=== PATIENT | female | born 1940 | race Caucasian/White ===

== ENCOUNTER 2021-07-05 16:26 | Inpatient (IN) | payer MEDICARE, BC ==
--- NOTE | 2021-07-05 16:58 | ED ---
General Adult HPI - General Chief complaint: Abdominal Pain Stated complaint: vomiting Time Seen by Provider: 07/05/21 16:33 Source: patient Mode of arrival: ambulatory Limitations: no limitations - History of Present Illness Initial comments: Patient is an 80-year-old female with history of hypertension, presenting to the emergency Department with complaints of on and off abdominal bloating and nausea and vomiting has been going on for a few weeks. She states it seems to be worse over the last few days. Currently she has no complaints. She states after she eats, she states that her stomach feels very bloated and she feels the nausea started soon after and then she needs to vomit. She states after she vomits she feels better. She states that she does not have significant pain with this despite her and bloating. She admits to history of cholecystectomy, hysterectomy, no other abdominal surgeries. She denies any chest pain or shortness of breath, no fevers or chills. She denies history of ulcers or GERD. She states she does drink a lot of water. She mentioned that she did not want to come in for this, her neighbor is making her come in to be evaluated. She does have an appointment with her PCP next week for evaluation. Is not seen a GI specialtist. She has no further complaints at this time. - Related Data Home Medications Medication Instructions Recorded Confirmed Ergocalciferol [Vitamin D2 (1250 1,250 mcg PO MO 07/05/21 07/05/21 Mcg = 29953 Iu)] Lisinopril-Hctz 20-25 mg 1 tab PO DAILY 07/05/21 07/05/21 [Zestoretic 20-25] Metoprolol Tartrate [Lopressor] 25 mg PO HS 07/05/21 07/05/21 amLODIPine [Norvasc] 10 mg PO DAILY 07/05/21 07/05/21 Allergies Allergy/AdvReac Type Severity Reaction Status Date / Time No Known Allergies Allergy Verified 07/05/21 18:00 Review of Systems ROS Statement: Those systems with pertinent positive or pertinent negative responses have been documented in the HPI. ROS Other: All systems not noted in ROS Statement are negative. Past Medical History Past Medical History: Coronary Artery Disease (CAD), Hypertension History of Any Multi-Drug Resistant Organisms: None Reported Past Surgical History: Cholecystectomy, Hysterectomy Past Psychological History: No Psychological Hx Reported Smoking Status: Former smoker Past Alcohol Use History: None Reported Past Drug Use History: None Reported General Exam - General Exam Comments Initial Comments: GENERAL: Patient is well-developed and well-nourished. Patient is nontoxic and in no ac [place] distress. HEAD: Atraumatic, normocephalic. EYES: Pupils equal round and reactive to light, extraocular movements intact, sclera anicteric, conjunctiva are normal. Eyelids were unremarkable. ENT: Moist mucous membranes. NECK: Normal range of motion, supple without lymphadenopathy or JVD. LUNGS: Unlabored respirations. Breath sounds clear to auscultation bilaterally and equal. No wheezes rales or rhonchi. HEART: Regular rate and rhythm without murmurs, rubs or gallops. ABDOMEN: Soft, very mild epigastric pressure on palpation but no pain, normoactive bowel sounds. No guarding, no rebound. No masses appreciated. : Deferred MUSCULOSKELETAL: Normal extremities with adequate strength and normal range of motion, no pitting or edema. No clubbing or cyanosis. NEUROLOGICAL: Patient is alert and oriented x 3. SKIN: Warm, Dry, normal turgor, no rashes or lesions noted. Limitations: no limitations Course Vital Signs 07/05/21 07/05/21 07/05/21 16:27 18:25 19:24 Temperature 98.7 F Pulse Rate 95 74 71 Respiratory 20 16 20 Rate Blood Pressure 145/68 146/69 153/69 O2 Sat by Pulse 96 95 100 Oximetry Medical Decision Making - Medical Decision Making Patient is an 80-year-old female here with on and off abdominal bloating and nausea and vomiting over the past 2 weeks. She currently has no abdominal pain, nausea or vomiting. She states she feels fine today. Her vitals are stable. No significant on exam. History of cholecystectomy, hysterectomy. Patient's white count is 10.8, bilirubin is elevated at 3.5, transaminitis, lipase is normal, urine shows 2+ bilirubin otherwise unremarkable. Ultrasound of the liver shows dilated common bile duct at 1.3 cm, there is no obvious obstruction seen, no focal liver defect. These findings were discussed with the patient, we did recommend admission for further workup, patient is agreeable to this. We did order an MRCP, additional lab work which are pending at this time. We did speak with Dr. Moreno who agrees to see the patient as well as put GI on consult to see in the morning. Patient accepted by Dr. Bravo. Case discussed with Dr. Turner. - Lab Data Result diagrams: 07/05/21 16:53 07/05/21 16:53 Lab Results 07/05/21 07/05/21 07/05/21 Range/Units 16:53 16:53 16:57 WBC 10.8 H (3.8-10.6) k/uL RBC 3.92 (3.80-5.40) m/uL Hgb 12.8 (11.4-16.0) gm/dL Hct 38.2 (34.0-46.0) % MCV 97.4 (80.0-100.0) fL MCH 32.7 (25.0-35.0) pg MCHC 33.6 (31.0-37.0) g/dL RDW 11.8 (11.5-15.5) % Plt Count 259 (150-450) k/uL MPV 8.0 Neutrophils % 82 % Lymphocytes % 12 % Monocytes % 3 % Eosinophils % 1 % Basophils % 0 % Neutrophils # 8.9 H (1.3-7.7) k/uL Lymphocytes # 1.3 (1.0-4.8) k/uL Monocytes # 0.4 (0-1.0) k/uL Eosinophils # 0.2 (0-0.7) k/uL Basophils # 0.0 (0-0.2) k/uL Sodium 139 (137-145) mmol/L Potassium 3.6 (3.5-5.1) mmol/L Chloride 103 (98-107) mmol/L Carbon Dioxide 25 (22-30) mmol/L Anion Gap 11 mmol/L BUN 20 H (7-17) mg/dL Creatinine 0.97 (0.52-1.04) mg/dL Est GFR (CKD-EPI)AfAm 64 (>60 ml/min/1.73 sqM) Est GFR (CKD-EPI)NonAf 55 (>60 ml/min/1.73 sqM) Glucose 138 H (74-99) mg/dL Calcium 9.7 (8.4-10.2) mg/dL Total Bilirubin 3.5 H (0.2-1.3) mg/dL AST 372 H (14-36) U/L ALT 323 H (4-34) U/L Alkaline Phosphatase 163 H (38-126) U/L Total Protein 7.1 (6.3-8.2) g/dL Albumin 4.0 (3.5-5.0) g/dL Lipase 189 (23-300) U/L Urine Color Dark Yellow Urine Appearance Clear (Clear) Urine pH 6.5 (5.0-8.0) Ur Specific [place] 1.016 (1.001-1.035) Urine Protein Trace H (Negative) Urine Glucose (UA) Negative (Negative) Urine Ketones Negative (Negative) Urine Blood Negative (Negative) Urine Nitrite Negative (Negative) Urine Bilirubin 2+ H (Negative) Urine Urobilinogen 8.0 (<2.0) mg/dL Ur Leukocyte Esterase Trace H (Negative) Urine RBC 1 (0-5) /hpf Urine WBC 4 (0-5) /hpf Ur Squamous Epith Cells <1 (0-4) /hpf Urine Mucus Rare H (None) /hpf Disposition Clinical Impression: Abdominal bloating, Nausea and vomiting, Hyperbilirubinemia, Transaminitis, Common bile duct dilatation Disposition: ADMITTED IP TO THIS [facility] Condition: Stable Referrals: Robel Bravo MD [Primary Care Provider] - 1-2 days Decision Date: 07/05/21 Decision Time: 20:12
[2021-07-05 16:59] LABS: Basophils % (A) 0 %; Eosinophils # (A) 0.2 k/uL (0-0.7); Eosinophils % (A) 1 %; HCT 38.2 % (34.0-46.0); HGB 12.8 gm/dL (11.4-16.0); Lymphocytes # (A) 1.3 k/uL (1.0-4.8); Lymphocytes % (A) 12 %; MCH 32.7 pg (25.0-35.0); MCHC 33.6 g/dL (31.0-37.0); MCV 97.4 fL (80.0-100.0); Monocytes # (A) 0.4 k/uL (0-1.0); Monocytes % (A) 3 %; Neutrophils # (A) 8.9 k/uL (1.3-7.7); Neutrophils % (A) 82 %; Platelet Count 259 k/uL (150-450); RBC 3.92 m/uL (3.80-5.40); RDW 11.8 % (11.5-15.5); WBC 10.8 k/uL (3.8-10.6)
--- NOTE | 2021-07-05 17:14 | XR ---
EXAMINATION TYPE: XR KUB DATE OF EXAM: 07/05/2021 COMPARISON: NONE HISTORY: Epigastric pain TECHNIQUE: Single view FINDINGS: There is no sign of intestinal obstruction or pneumoperitoneum. Fecal pattern is normal. Th ere are clips from cholecystectomy. Lung bases are clear. There is no evidence of a mass. IMPRESSION: Nonacute abdomen.
[2021-07-05 17:18] LABS: Appearance,Urine Clear (Clear); Bilirubin,Urine 2+ (Negative); Blood,Urine Negative (Negative); Color,Urine Dark Yellow; Glucose,Urine (UA) Negative (Negative); Ketones,Urine Negative (Negative); Leukocyte Esterase,Urine Trace (Negative); Mucus,Urine Rare /hpf; Nitrite,Urine Negative (Negative); PH, Urine 6.5 (5.0-8.0); Protein,Urine Trace (Negative); RBC,Urine 1 /hpf (0-5); Specific Gravity,Urine 1.016 (1.001-1.035); Squamous Epithelial Cell,Urine <1 /hpf (0-4); WBC,Urine 4 /hpf (0-5)
[2021-07-05 18:02] LABS: Calcium 9.7 mg/dL (8.4-10.2); Potassium 3.6 mmol/L (3.5-5.1); Total Bilirubin 3.5 mg/dL (0.2-1.3); Total Protein 7.1 g/dL (6.3-8.2)
--- NOTE | 2021-07-05 19:15 | US ---
EXAMINATION TYPE: US liver DATE OF EXAM: 07/05/2021 COMPARISON: NONE CLINICAL HISTORY: bloating, transaminitis. bloating after eating, cholecystectomy, elevated labs EXAM MEASUREMENTS: Liver Length: 13.1 cm Gallbladder Wall: Surgically absent CBD: 1.3 cm Right Kidney: 10.0 x 3.9 x 4.9 cm Pancreas: wnl Liver: wnl Gallbladder: Surgically absent Evidence for sonographic Macias's sign: no CBD: dilated with no obvious obstruction seen Right Kidney: wnl IMPRESSION: Gallbladder is absent. There is dilated common bile duct but no dilation seen of the intrahepatic willard e ducts. No free fluid. No focal liver defect.
[2021-07-05] MEDS ORDERED: ONDANSETRON 4 MG/2 ML VIAL IVP PRN (20:05)
[2021-07-05] MEDS ORDERED: NALOXONE 0.4 MG/ML 1 ML VIAL IV PRN (20:05)
[2021-07-05] MEDS ORDERED: PIPERACILLIN-TAZOBACTAM 3.375 GM in SODIUM CHLORIDE 0.9% 100 ML IVPB STA (20:09)
[2021-07-05] MEDS: SODIUM CHLORIDE 0.9% 1,000 ML IV SCH (20:24)
[2021-07-05 20:32] LABS: Bilirubin, Conjugated 1.8 mg/dL (0.0-0.3); Bilirubin, Delta 1.1 mg/dL (0.0-0.2); Total Bilirubin 3.9 mg/dL (0.2-1.3)
[2021-07-05 20:38] LABS: INR 1.1 (<1.2); Prothrombin Time 11.1 sec (9.0-12.0)
[2021-07-05 21:22] LABS: Partial Thromboplastin Time 21.8 sec (22.0-30.0)
[2021-07-05 23:12] LABS: Hepatitis A Antibody IgM Non-Reactive (Non-Reactive); Hepatitis B Core IgM Non-Reactive (Non-Reactive); Hepatitis B Surface Antigen Non-Reactive (Non-Reactive); Hepatitis C IgG Antibody Non-Reactive (Non-Reactive)
[2021-07-06] MEDS: SODIUM CHLORIDE 0.9% 1,000 ML IV SCH ×2 (06:00→17:49)
[2021-07-06] MEDS ORDERED: ERGOCALCIFEROL 1,250 MCG (50,000 IU) CAPSULE PO ONE (13:00)
--- NOTE | 2021-07-06 13:02 | MR ---
EXAMINATION TYPE: MR MRCP DATE OF EXAM: 07/06/2021 COMPARISON: Liver ultrasound 07/05/2021 HISTORY: 80-year-old female Dilated common bile duct, hyperbilirubinemia TECHNIQUE: Multiplanar, multisequence images of the abdomen are obtained. Highly T2 weighted images o f the pancreatic biliary system for MRCP. 3-D reconstructions generated on a dedicated independent wo rkstation FINDINGS: Liver normal size at 15.4 cm. No significant loss of signal on out of phase T1-weighted sequence to s uggest significant fatty infiltration. There is frankly dilated bile duct measuring up to 1.8 cm with mild intrahepatic biliary ductal dilat ation as well. The patient is status post cholecystectomy. There is an ovoid hypointense filling defe ct measuring 2.2 x 1.1 x 1.0 cm located within the lower bile duct, refer to coronal series 301 image 15. No additional abnormal filling defect is seen. Mild prominence to the main pancreatic duct at 4.5 mm may be chronic for the patient. No distal obstr ucting mass is seen. Noncontrast appearance of the patient's dense adrenal glands, right kidney with extrarenal pelvis, pa ncreas, and spleen within normal limits. There is a tiny 6 mm T2 hyperintensity in the upper pole cor kyle of the left kidney suggesting a small cortical cyst. No upper abdominal ascites, lymphadenopathy, or gross bowel abnormality is seen. IMPRESSION: 1. Choledocholithiasis with a large ovoid, 2.2 x 1.1 cm stone in the lower bile duct. 2. Secondary biliary ductal dilatation up to 1.8 cm. 3. Status post cholecystectomy. 4. Mild diffuse dilatation of the main pancreatic duct up to 4.5 mm, probably chronic for the patient . Consider a 6-12 month follow-up MRCP to reassess.
[2021-07-06 13:20] LABS: HCT 36.9 % (34.0-46.0); HGB 12.3 gm/dL (11.4-16.0); MCH 33.5 pg (25.0-35.0); MCHC 33.4 g/dL (31.0-37.0); MCV 100.3 fL (80.0-100.0); Mean Platelet Volume 7.8; Platelet Count 240 k/uL (150-450); RBC 3.68 m/uL (3.80-5.40); RDW 12.3 % (11.5-15.5); WBC 5.4 k/uL (3.8-10.6)
[2021-07-06 13:35] LABS: ALT 242 U/L (4-34); AST 175 U/L (14-36); African American GFR (CKD) 78 (>60 ml/min/1.73 sqM); Albumin 3.9 g/dL (3.5-5.0); Albumin/Globulin Ratio 1.3; Alkaline Phosphatase 161 U/L (38-126); Anion Gap 10 mmol/L; Blood Urea Nitrogen 15 mg/dL (7-17); Calcium 9.3 mg/dL (8.4-10.2); Carbon Dioxide 26 mmol/L (22-30); Chloride 101 mmol/L (98-107); Glucose 97 mg/dL (74-99); Non-African American GFR(CKD) 67 (>60 ml/min/1.73 sqM); Potassium 4.1 mmol/L (3.5-5.1); Sodium 137 mmol/L (137-145); Total Bilirubin 2.1 mg/dL (0.2-1.3); Total Protein 6.9 g/dL (6.3-8.2)
[2021-07-06] MEDS: amLODIPine 10 MG TAB PO SCH (14:26)
[2021-07-06] MEDS: LISINOPRIL-HCTZ 20-25 MG 1 EACH TAB PO SCH (14:26)
--- NOTE | 2021-07-06 15:34 | P.CONS ---
History of Present Illness - Reason for Consult Consult date: 07/06/21 Dilated common bile duct Requesting physician: Robel Bravo - Chief Complaint Abdominal pain, nausea, and vomiting - History of Present Illness This a pleasant 80-year-old white female with a history of hypertension who presented to the emergency department yesterday with complaints of on and off abdominal pain, bloating, nausea and vomiting for the last few days. Patient states actually she recalls now that this has been occurring several different times over the last year however she has managed at home. He had her gallbladder out in 2001, unsure of reason. The pain was getting worse over the last 2 days so she came into the emergency department for further evaluation. She had initial blood work showing elevation in her LFTs. On admission WBC 10.8, hemoglobin 12.8, hematocrit 38, platelet count 259,000, lipase 189, total bilirubin 3.5, alkaline phosphatase 163, AST 372, ALT 323. She underwent an ultrasound of the liver that showed surgically absent gallbladder, dilated common bile duct but no dilation seen of the intrahepatic bile ducts. No free fluid. No focal liver defect. CBD measuring 1.3 cm. Patient stated she was experiencing right upper quadrant and epigastric pain, though seated with some nausea and vomiting. She denies any abdominal pain, nausea or vomiting when she came into the hospital. Today she states abdominal pain is gone, she feels well. Repeat LFTs are trending down with a total bilirubin of 2.1, alkaline phosphatase 161, AST 175, ALT 242. Patient underwent an MRCP showing choledocholithiasis with a large ovoid, 2.2 x 1.1 cm stone in the lower bile duct. Secondary biliary ductal dilation up to 1.8 cm. Status post cholecystectomy, mild diffuse dilation of the main pancreatic duct to 4.4 mm, probably chronic for the patient. Consider a 6-12 month follow-up MRCP to reassess. Review of Systems REVIEW OF SYSTEMS: CARDIOPULMONARY: No chest pain or shortness of breath. Gastrointestinal: Right upper quadrant pain with nausea or vomiting, now resolved. No hematemesis, coffee-ground emesis. No rectal bleeding, or melena. GENITOURINARY: No dysuria or hematuria. MUSCULOSKELETAL: Reports normal range of motion., Joint pain. SKIN: No rashes. No jaundice. ENDOCRINE: No chills, fevers. No excessive weight gain or loss. No polydipsia or polyuria. PSYCHIATRIC: Unremarkable. NEUROLOGY: No change in mental status. Denies dizziness, headache. ENT: Vision unremarkable. CONSTITUTIONAL: No recent weight loss. No fever, chills, night sweats. Past Medical History Past Medical History: Coronary Artery Disease (CAD), Hypertension History of Any Multi-Drug Resistant Organisms: None Reported Past Surgical History: Cholecystectomy, Hysterectomy Past Anesthesia/Blood Transfusion Reactions: No Reported Reaction Past Psychological History: No Psychological Hx Reported Smoking Status: Former smoker Past Alcohol Use History: None Reported Additional Past Alcohol Use History / Comment(s): Social drinker, weekends Past Drug Use History: None Reported - Past Family History Father History Unknown: Yes Additional Family Medical History / Comment(s): Unsure of cause Medications and Allergies Home Medications Medication Instructions Recorded Confirmed Type Ergocalciferol [Vitamin D2 (1250 1,250 mcg PO MO 07/05/21 07/05/21 History Mcg = 05680 Iu)] Lisinopril-Hctz 20-25 mg 1 tab PO DAILY 07/05/21 07/05/21 History [Zestoretic 20-25] Metoprolol Tartrate [Lopressor] 25 mg PO HS 07/05/21 07/05/21 History amLODIPine [Norvasc] 10 mg PO DAILY 07/05/21 07/05/21 History Allergies Allergy/AdvReac Type Severity Reaction Status Date / Time No Known Allergies Allergy Verified 07/05/21 18:00 Physical Exam Vitals: Vital Signs Temp Pulse Pulse Resp BP BP Pulse Ox 07/06/21 05:32 98.2 F 59 L 16 144/56 96 07/05/21 23:00 16 07/05/21 21:50 97.5 F L 58 L 16 155/68 98 07/05/21 19:24 71 20 153/69 100 07/05/21 18:25 74 16 146/69 95 07/05/21 16:27 98.7 F 95 20 145/68 96 Intake and Output 07/05/21 07/06/21 07/06/21 22:59 06:59 14:59 Other: Voiding Method Toilet # Voids 1 Weight 58.151 kg 58.2 kg General appearance: The patient is alert, oriented, appears in no acute distress. HET: Head is normocephalic and atraumatic. Conjunctiva pink. Sclera anicteric. Neck: Supple without lymphadenopathy. Trachea midline. Heart: S1 S2. Regular rate and rhythm. Lungs: Clear to auscultation. Abdomen: Soft, mild right upper quadrant tenderness to palpation, nondistended with bowel sounds. No guarding or rigidity. Skin: No rashes. No jaundice. Extremities: Normal skin color and turgor. No pedal edema. Neurological: No focal deficits. Alert and oriented 3.. Results CBC & Chem 7: 07/06/21 12:45 07/06/21 12:45 Labs: Abnormal Lab Results - Last 24 Hours (Table) 07/05/21 07/05/21 07/05/21 Range/Units 16:53 16:53 16:57 WBC 10.8 H (3.8-10.6) k/uL Neutrophils # 8.9 H (1.3-7.7) k/uL APTT (22.0-30.0) sec BUN 20 H (7-17) mg/dL Glucose 138 H (74-99) mg/dL Total Bilirubin 3.5 H (0.2-1.3) mg/dL Conjugated Bilirubin (0.0-0.3) mg/dL Delta Bilirubin (0.0-0.2) mg/dL AST 372 H (14-36) U/L ALT 323 H (4-34) U/L Alkaline Phosphatase 163 H (38-126) U/L Urine Protein Trace H (Negative) Urine Bilirubin 2+ H (Negative) Ur Leukocyte Esterase Trace H (Negative) Urine Mucus Rare H (None) /hpf 07/05/21 07/05/21 Range/Units 20:02 20:02 WBC (3.8-10.6) k/uL Neutrophils # (1.3-7.7) k/uL APTT 21.8 L (22.0-30.0) sec BUN (7-17) mg/dL Glucose (74-99) mg/dL Total Bilirubin 3.9 H (0.2-1.3) mg/dL Conjugated Bilirubin 1.8 H (0.0-0.3) mg/dL Delta Bilirubin 1.1 H (0.0-0.2) mg/dL AST (14-36) U/L ALT (4-34) U/L Alkaline Phosphatase (38-126) U/L Urine Protein (Negative) Urine Bilirubin (Negative) Ur Leukocyte Esterase (Negative) Urine Mucus (None) /hpf Comments: Ultrasound of the liver that showed surgically absent gallbladder, dilated co mmon bile duct but no dilation seen of the intrahepatic bile ducts. No free fluid. No focal liver defect. CBD measuring 1.3 cm. Patient stated she was experiencing right upper quadrant and epigastric pain, though seated with some nausea and vomiting. MRCP showing choledocholithiasis with a large ovoid, 2.2 x 1.1 cm stone in the lower bile duct. Secondary biliary ductal dilation up to 1.8 cm. Status post cholecystectomy, mild diffuse dilation of the main pancreatic duct to 4.4 mm, probably chronic for the patient. Consider a 6-12 month follow-up MRCP to reassess. Assessment and Plan (1) Choledocholithiasis Narrative/Plan: 80-year-old female who presented to the emergency department with complaints of right upper quadrant and epigastric pain associated with nausea and vomiting over the last few days duration with worse intensity. Patient states she's been having similar symptoms over the past 1 year periodically. She currently denies any abdominal pain, nausea, or vomiting. She underwent an ultrasound of the liver showing dilated CBD at 1.3 cm. She subsequently underwent an MRCP showing evidence of choledochal lithiasis with a large ovoid 2.2 x 1.1 cm stone in the lower bile duct, secondary biliary ductal dilation up to 1.8 cm with mild diffuse dilation of the main pancreatic duct up to 4.5 mm. Patient also exhi bited elevated LFTs. Her acute hepatitis panel was negative. She has previous cholecystectomy in 2001 for unknown reasons, Likely cholelithiasis. We'll plan to proceed with ERCP tomorrow. Current Visit: Yes Status: Acute Code(s): K80.50 - CALCULUS OF BILE DUCT W/O CHOLANGITIS OR CHOLECYST W/O OBST SNOMED Code(s): 869571883 (2) Abdominal pain Current Visit: Yes Status: Acute Code(s): R10.9 - UNSPECIFIED ABDOMINAL PAIN SNOMED Code(s): 25310754 Plan: 1. Full liquid diet, nothing by mouth after midnight 2. Patient is scheduled for ERCP tomorrow, risks and benefits discussed with patient and daughter on the phone. Patient is willing to proceed with procedure. 3. Levaquin 500 mg IVPB one hour prior to procedure 4. Indomethacin 100 mg per rectum one hour prior to procedure 5. Repeat CBC CMP in the morning Thank you for this consultation, we will continue to follow. Dr. Edith Yin I agree with the dictator's note, documented as a scribe by Griselda Graf.
--- NOTE | 2021-07-06 19:31 | P.HPIM ---
History of Present Illness H&P Date: 07/06/21 Krista Aguilar, is an 80-year-old female who presented to [facility] emergency room with a chief complaint of nausea vomiting abdominal bloating and occasional abdominal pain She was evaluated in the emergency room vital examination on presentation revealed a temperature of 98.7 pulse 95 respiration 20 blood pressure 145/68 pulse ox 96% on room air Laboratory data reveals a white blood count of 10.8 hemoglobin 12.8 platelet count 259 INR 1.1 AST 372 a LT 323 alkaline phosphatase 163 total bilirubin 3.9 Testing in the emergency room revealed liver ultrasound done in the emergency room revealed gallbladder is absent, there is dilated common bile duct, otherwise no significant abnormality Patient was admitted to medical floor for further evaluation and treatment, gastroenterology consultation was requested. Past medical history is significant for history of hypertension, history of hyper lipidemia, history of coronary artery disease, past medical history significant for cholecystectomy and hysterectomy On review of systems Patient is alert and oriented x 3 in no distress, she denies any complaints at this time there is no fever or chills no headache or dizziness no chest pain no shortness of breath no palpitation no cough no nausea or vomiting no abdominal pain no diarrhea no blood in the stools no burning with urination no frequency or urgency and no hematuria, there is no weakness or numbness in any of the extremities no change in vision speech or gait. Past Medical History Past Medical History: Coronary Artery Disease (CAD), Hypertension History of Any Multi-Drug Resistant Organisms: None Reported Past Surgical History: Cholecystectomy, Hysterectomy Past Anesthesia/Blood Transfusion Reactions: No Reported Reaction Past Psychological History: No Psychological Hx Reported Smoking Status: Former smoker Past Alcohol Use History: None Reported Additional Past Alcohol Use History / Comment(s): Social drinker, weekends Past Drug Use History: None Reported - Past Family History Father History Unknown: Yes Additional Family Medical History / Comment(s): Unsure of cause Medications and Allergies Home Medications Medication Instructions Recorded Confirmed Type Ergocalciferol [Vitamin D2 (1250 1,250 mcg PO MO 07/05/21 07/05/21 History Mcg = 28997 Iu)] Lisinopril-Hctz 20-25 mg 1 tab PO DAILY 07/05/21 07/05/21 History [Zestoretic 20-25] Metoprolol Tartrate [Lopressor] 25 mg PO HS 07/05/21 07/05/21 History amLODIPine [Norvasc] 10 mg PO DAILY 07/05/21 07/05/21 History Allergies Allergy/AdvReac Type Severity Reaction Status Date / Time No Known Allergies Allergy Verified 07/05/21 18:00 Physical Exam Vitals: Vital Signs Temp Pulse Pulse Pulse Resp BP BP 07/06/21 11:44 97.9 F 73 16 158/65 07/06/21 05:32 98.2 F 59 L 16 07/05/21 23:00 16 07/05/21 21:50 97.5 F L 58 L 16 07/05/21 19:24 71 20 153/69 07/05/21 18:25 74 16 146/69 07/05/21 16:27 98.7 F 95 20 145/68 BP Pulse Ox 07/06/21 11:44 98 07/06/21 05:32 144/56 96 07/05/21 23:00 07/05/21 21:50 155/68 98 07/05/21 19:24 100 07/05/21 18:25 95 07/05/21 16:27 96 Intake and Output 07/05/21 07/06/21 07/06/21 22:59 06:59 14:59 Other: Voiding Method Toilet Toilet # Voids 1 Weight 58.151 kg 58.2 kg In general patient is alert and oriented x 3 in no distress HEENT head normocephalic and atraumatic Neck is supple no JVD no goiter no lymphadenopathy no carotid bruit Chest examination is clear to auscultation no crackles no wheezing Cardiac exam reveals regular heart sounds S1 and S2 no gallops no murmurs Abdomen is soft nontender no organomegaly with normal bowel sounds Extremity exam reveals no edema no cyanosis or clubbing Neurological examination reveals no gross focal deficits Results CBC & Chem 7: 07/06/21 12:45 07/06/21 12:45 Labs: Abnormal Lab Results - Last 24 Hours (Table) 07/05/21 07/05/21 07/05/21 Range/Units 16:53 16:53 16:57 WBC 10.8 H (3.8-10.6) k/uL Neutrophils # 8.9 H (1.3-7.7) k/uL APTT (22.0-30.0) sec BUN 20 H (7-17) mg/dL Glucose 138 H (74-99) mg/dL Total Bilirubin 3.5 H (0.2-1.3) mg/dL Conjugated Bilirubin (0.0-0.3) mg/dL Delta Bilirubin (0.0-0.2) mg/dL AST 372 H (14-36) U/L ALT 323 H (4-34) U/L Alkaline Phosphatase 163 H (38-126) U/L Urine Protein Trace H (Negative) Urine Bilirubin 2+ H (Negative) Ur Leukocyte Esterase Trace H (Negative) Urine Mucus Rare H (None) /hpf 07/05/21 07/05/21 Range/Units 20:02 20:02 WBC (3.8-10.6) k/uL Neutrophils # (1.3-7.7) k/uL APTT 21.8 L (22.0-30.0) sec BUN (7-17) mg/dL Glucose (74-99) mg/dL Total Bilirubin 3.9 H (0.2-1.3) mg/dL Conjugated Bilirubin 1.8 H (0.0-0.3) mg/dL Delta Bilirubin 1.1 H (0.0-0.2) mg/dL AST (14-36) U/L ALT (4-34) U/L Alkaline Phosphatase (38-126) U/L Urine Protein (Negative) Urine Bilirubin (Negative) Ur Leukocyte Esterase (Negative) Urine Mucus (None) /hpf Thrombosis Risk Factor Assmnt - Choose All That Apply Any of the Below Risk Factors Present?: Yes Other Risk Factors: Yes Each Risk Factor Represents 3 Points: Age 75 years or older Thrombosis Risk Factor Assessment Total Risk Factor Score: 3 Thrombosis Risk Factor Assessment Level: Moderate Risk Assessment and Plan Plan: Nausea vomiting and abdominal pain Elevated liver enzymes, including AST ALT and alkaline phosphatase and elevated total bilirubin, possible partial obstruction of the common bile duct, with a stone versus tumor, MRCP was ordered, gastroenterology consultation was requested Underlying history of hypertension Underlying history of coronary artery disease stable no cardiac symptoms At this time patient is admitted to medical floor Laboratory data and abdomen ultrasound were reviewed Awaiting MRCP Awaiting gastroenterology consultation Will recheck labs in a.m. and follow closely
[2021-07-06] MEDS: METOPROLOL TARTRATE 25 MG TAB PO SCH (20:52)
[2021-07-07] MEDS: SODIUM CHLORIDE 0.9% 1,000 ML IV SCH ×3 (02:34→20:30)
--- NOTE | 2021-07-07 03:02 | P.GSCN ---
History of Present Illness Consult date: 07/07/21 History of present illness: CHIEF COMPLAINT: Abdominal pain HISTORY OF PRESENT ILLNESS: The patient is an 80-year-old female with intermittent abdominal pain for more than 2 weeks. She reports pain in the healthy eater but has been decreased due to abdominal pain. She presents with jaundice. Liver enzymes and total bilirubin has been elevated. Ultrasound demonstrates a dilated common bile duct. Patient reports of her prior cholecystectomy. General surgery is consulted for elevated liver enzymes including dilated common bile duct per ultrasound. PAST MEDICAL HISTORY: See list and reviewed PAST SURGICAL HISTORY: See list and reviewed MEDICATIONS: See list and reviewed ALLERGIES: See list and reviewed SOCIAL HISTORY: See list and reviewed FAMILY HISTORY: See list and reviewed REVIEW OF ORGAN SYSTEMS: CONSTITUTIONAL: No fevers or chills. EYES: Denies any trouble with vision. No glasses. HEENT: No difficulties with hearing. No nosebleeds. No difficulty swallowing. RESPIRATORY: Past tobacco abuse disorder. No recent pneumonias. CARDIOVASCULAR: Has coronary artery disease and hypertension. GASTROINTESTINAL: Denies fatty food intolerance. Denies change in bowel habits and gas bloat. GENITOURINARY: Denies any blood in urine or increased urinary frequency. NEUROLOGICAL: Denies any numbness or tingling along the distal extremities. No seizure disorders or headaches. MUSCULOSKELETAL: Has occasional back pain, stiffness or joint arthritis. SKIN: No current skin cancer. No rash. PSYCHIATRIC: Denies current depression or suicidal thoughts. ENDOCRINE: Denies current thyroid disorders. Denies any blood sugar glucose intolerance. HEME/LYMPHATIC: Denies any lumps and bumps around the neck. No recent deep venous thrombosis. ALLERGY/IMMUNOLOGY: No immunoglobulin therapy. No immune deficiencies. BREAST: Denies current breast lumps, pain or nipple discharge. PHYSICAL EXAM: VITALS: Reviewed CONSTITUTIONAL: Well developed and in no acute distress. EYES: Conjuctivae with mild sclera icterus. Extraocular movements grossly intact. HEAD, EARS, NOSE, THROAT: Moist buccal mucosa. Head is atraumatic, normocephalic. Hears conversational speech. No nasal drainage. NECK: Supple. No gross JV distention. No gross thyroidomegaly. RESPIRATORY: Non-labored respirations and equal bilateral excursions. No gross wheezes. CARDIOVASCULAR: Extremities without moderate edema. Palpable 2+ radial pulses. ABDOMEN: Nontender. No peritonitis. LYMPH: No neck lymphadenopathy. MUSCULOSKELETAL: Nail and fingers with good capillary refill. SKIN: Warm and well perfused with good skin turgor. NEUROLOGIC: Cranial nerves II through XII grossly intact. Sensation upper and extremities intact. No focal or lateralizing signs. PSYCH: Appropriate affect. Alert and oriented to person, place and time. Displays appropriate insight. CLINCAL LABS: Reviewed. WBC elevated at 10.8 on admission. Total bilirubin elevated at 3.5. AST ALT and alkaline phosphatase elevated. IMAGING: Independently reviewed ultrasound of the right upper quadrant without gallstones. Common bile duct dilated. Intrahepatic ductal dilatation identif ied. This is my independent interpretation. MRCP: Imaging independent reviewed with gallstone defect along the distal common bile duct. This is my independent interpretation. RADIOLOGY: Report reviewed of ultrasound of the liver with common bile duct dilated to 1.3 cm. ASSESSMENT: 1. Choledocholithiasis with abdominal pain 2. Elevated LFTs PLAN: 1. Patient seen and evaluated. MRCP reviewed demonstrating, common bile duct stone. GI consultation for ERCP advised. 2. At this time, no acute surgical intervention needed. Thank you for this kind consultation. Past Medical History Past Medical History: Coronary Artery Disease (CAD), Hypertension History of Any Multi-Drug Resistant Organisms: None Reported Past Surgical History: Cholecystectomy, Hysterectomy Past Anesthesia/Blood Transfusion Reactions: No Reported Reaction Past Psychological History: No Psychological Hx Reported Smoking Status: Former smoker Past Alcohol Use History: None Reported Additional Past Alcohol Use History / Comment(s): Social drinker, weekends Past Drug Use History: None Reported - Past Family History Father History Unknown: Yes Additional Family Medical History / Comment(s): Unsure of cause Medications and Allergies Home Medications Medication Instructions Recorded Confirmed Type Ergocalciferol [Vitamin D2 (1250 1,250 mcg PO MO 07/05/21 07/05/21 History Mcg = 47497 Iu)] Lisinopril-Hctz 20-25 mg 1 tab PO DAILY 07/05/21 07/05/21 History [Zestoretic 20-25] Metoprolol Tartrate [Lopressor] 25 mg PO HS 07/05/21 07/05/21 History amLODIPine [Norvasc] 10 mg PO DAILY 07/05/21 07/05/21 History Allergies Allergy/AdvReac Type Severity Reaction Status Date / Time No Known Allergies Allergy Verified 07/05/21 18:00 Surgical - Exam Vital Signs Temp Pulse Resp BP Pulse Ox 98.7 F 95 20 145/68 96 07/05/21 16:27 07/05/21 16:27 07/05/21 16:27 07/05/21 16:27 07/05/21 16:27 Results - Labs 07/08/21 09:29 07/08/21 09:29 Abnormal Lab Results - Last 24 Hours (Table) 07/05/21 07/05/21 07/05/21 Range/Units 16:53 16:53 16:57 WBC 10.8 H (3.8-10.6) k/uL Neutrophils # 8.9 H (1.3-7.7) k/uL APTT (22.0-30.0) sec BUN 20 H (7-17) mg/dL Glucose 138 H (74-99) mg/dL Total Bilirubin 3.5 H (0.2-1.3) mg/dL Conjugated Bilirubin (0.0-0.3) mg/dL Delta Bilirubin (0.0-0.2) mg/dL AST 372 H (14-36) U/L ALT 323 H (4-34) U/L Alkaline Phosphatase 163 H (38-126) U/L Urine Protein Trace H (Negative) Urine Bilirubin 2+ H (Negative) Ur Leukocyte Esterase Trace H (Negative) Urine Mucus Rare H (None) /hpf 07/05/21 07/05/21 Range/Units 20:02 20:02 WBC (3.8-10.6) k/uL Neutrophils # (1.3-7.7) k/uL APTT 21.8 L (22.0-30.0) sec BUN (7-17) mg/dL Glucose (74-99) mg/dL Total Bilirubin 3.9 H (0.2-1.3) mg/dL Conjugated Bilirubin 1.8 H (0.0-0.3) mg/dL Delta Bilirubin 1.1 H (0.0-0.2) mg/dL AST (14-36) U/L ALT (4-34) U/L Alkaline Phosphatase (38-126) U/L Urine Protein (Negative) Urine Bilirubin (Negative) Ur Leukocyte Esterase (Negative) Urine Mucus (None) /hpf Diabetes panel 07/05/21 Range/Units 16:53 Sodium 139 (137-145) mmol/L Potassium 3.6 (3.5-5.1) mmol/L Chloride 103 (98-107) mmol/L Carbon Dioxide 25 (22-30) mmol/L BUN 20 H (7-17) mg/dL Creatinine 0.97 (0.52-1.04) mg/dL Glucose 138 H (74-99) mg/dL Calcium 9.7 (8.4-10.2) mg/dL AST 372 H (14-36) U/L ALT 323 H (4-34) U/L Alkaline Phosphatase 163 H (38-126) U/L Total Protein 7.1 (6.3-8.2) g/dL Albumin 4.0 (3.5-5.0) g/dL Calcium panel 07/05/21 Range/Units 16:53 Calcium 9.7 (8.4-10.2) mg/dL Albumin 4.0 (3.5-5.0) g/dL Pituitary panel 07/05/21 Range/Units 16:53 Sodium 139 (137-145) mmol/L Potassium 3.6 (3.5-5.1) mmol/L Chloride 103 (98-107) mmol/L Carbon Dioxide 25 (22-30) mmol/L BUN 20 H (7-17) mg/dL Creatinine 0.97 (0.52-1.04) mg/dL Glucose 138 H (74-99) mg/dL Calcium 9.7 (8.4-10.2) mg/dL Adrenal panel 07/05/21 07/05/21 Range/Units 16:53 20:02 Sodium 139 (137-145) mmol/L Potassium 3.6 (3.5-5.1) mmol/L Chloride 103 (98-107) mmol/L Carbon Dioxide 25 (22-30) mmol/L BUN 20 H (7-17) mg/dL Creatinine 0.97 (0.52-1.04) mg/dL Glucose 138 H (74-99) mg/dL Calcium 9.7 (8.4-10.2) mg/dL Total Bilirubin 3.5 H 3.9 H (0.2-1.3) mg/dL AST 372 H (14-36) U/L ALT 323 H (4-34) U/L Alkaline Phosphatase 163 H (38-126) U/L Total Protein 7.1 (6.3-8.2) g/dL Albumin 4.0 (3.5-5.0) g/dL Assessment and Plan (1) Abdominal pain Status: Acute Code(s): R10.9 - UNSPECIFIED ABDOMINAL PAIN SNOMED Code(s): 78088286 (2) Choledocholithiasis Status: Acute Code(s): K80.50 - CALCULUS OF BILE DUCT W/O CHOLANGITIS OR CHOLECYST W/O OBST SNOMED Code(s): 053181402 (3) Common bile duct dilatation Status: Acute Code(s): K83.8 - OTHER SPECIFIED DISEASES OF BILIARY TRACT SNOMED Code(s): 478619751 (4) Hyperbilirubinemia Status: Acute Code(s): E80.6 - OTHER DISORDERS OF BILIRUBIN METABOLISM SNOMED Code(s): 23843526 (5) Transaminitis Status: Acute Code(s): R74.01 - ELEVATION OF LEVELS OF LIVER TRANSAMINASE LEVELS SNOMED Code(s): 489874762
[2021-07-07 05:36] LABS: Basophils % (A) 0 %; Eosinophils # (A) 0.3 k/uL (0-0.7); Eosinophils % (A) 7 %; HGB 11.6 gm/dL (11.4-16.0); Lymphocytes # (A) 1.4 k/uL (1.0-4.8); Lymphocytes % (A) 28 %; MCH 32.9 pg (25.0-35.0); MCHC 33.1 g/dL (31.0-37.0); MCV 99.3 fL (80.0-100.0); Mean Platelet Volume 7.9; Monocytes # (A) 0.4 k/uL (0-1.0); Monocytes % (A) 8 %; Neutrophils # (A) 2.9 k/uL (1.3-7.7); Neutrophils % (A) 56 %; Platelet Count 222 k/uL (150-450); RBC 3.52 m/uL (3.80-5.40); RDW 12.2 % (11.5-15.5); WBC 5.1 k/uL (3.8-10.6)
[2021-07-07] MEDS: amLODIPine 10 MG TAB PO SCH (08:28)
[2021-07-07] MEDS: LISINOPRIL-HCTZ 20-25 MG 1 EACH TAB PO SCH (08:28)
[2021-07-07 10:22] LABS: African American GFR (CKD) 80.1 (60.0-200.0); Albumin 3.4 g/dL (3.80-4.90); Albumin/Globulin Ratio 1.31 (1.60-3.17); Anion Gap 9.2 mmol/L (4.00-12.00); BUN/Creat Ratio 13.75 Ratio (12.00-20.00); Calcium 8.4 mg/dL (8.7-10.3); Carbon Dioxide 26.8 mmol/L (21.6-31.8); Globulin 2.6 g/dL (1.6-3.3); Non-African American GFR(CKD) 69.1 (60.0-200.0); Potassium 3.9 mmol/L (3.5-5.5); Total Bilirubin 1.1 mg/dL (0.2-1.2)
[2021-07-07] MEDS ORDERED: LEVOFLOXACIN 500MG-D5W PMX 500 MG in DEXTROSE/WATER 1 100ML.BAG IVPB SCH (13:00)
[2021-07-07] MEDS ORDERED: INDOMETHACIN 50MG SUPPOSITORY RECTAL ONE (13:00)
[2021-07-07] MEDS ORDERED: GLYCOPYRROLATE 0.2 MG/ML 2 ML VIAL ONE (13:01)
[2021-07-07] MEDS ORDERED: PROPOFOL 10 MG/ML 20 ML VIAL IV ONE (13:01)
[2021-07-07] MEDS ORDERED: LIDOCAINE 1% INJ 10MG/ML (20 ML MDV) ONE (13:01)
[2021-07-07] MEDS ORDERED: IV FLUID CONTINUATION 1,000 ML IV ONE ×2 (13:15)
--- NOTE | 2021-07-07 14:00 | P.PCN ---
Date of Procedure: 07/07/21 Procedure(s) Performed: Brief history: Patient is a year-old pleasant lady scheduled for an ERCP as part of evaluation of epigastric abdominal pain and elevated serum transaminases and jaundice for the last 2 days' duration. She was noted to have elevated LFTs and bili up to 3.9. She had an MRCP done that showed evidence of dilated common bile duct with a 2 cm CBD stones noted. She is hence scheduled for an ERCP today. Procedure performed: EGD/attempted ERCP Preoperative diagnoses: Epigastric pain/elevated LFTs and jaundice/CBD stone IV sedation per anesthesia: Procedure: After informed consent was obtained from the patient and after the risks benefits and complications including bleeding perforation and pancreatitis explained in detail the patient was brought into the endoscopy unit. The patient was placed in prone position and IV conscious sedation was administered by anesthesia under continuous monitoring. The Olympus side-viewing duodenoscope was then inserted into the mouth and esophagus could not be intubated despite multiple attempts. At this time the scope was removed and a forward-viewing scope was inserted mouth and esophagus intubated with some difficulty and there was evidence of proximal esophageal stricture at the cricopharyngeus noted. I was gently able to advance scope into the stomach and duodenum. The bulb and the second part of the duodenum appeared normal. The scope at this time was withdrawn to the stomach and there was some gastritis noted in the antrum of the stomach. The body and cardia of the stomach appeared normal. The scope was then withdrawn and esophagus for this. There were superficial mucosal rings noted in the proximal cervical esophagus there appeared to be dilated by the passage of the scope. At this time the scope was removed and the ERCP the scope was then advanced into the mouth and despite multiple attempts at intubating the esophagus was unsuccessful. Hence the procedure was terminated. Patient tolerated the procedure well. Impression: Proximal esophageal stricture Side-viewing duodenoscope could not be advanced through the stricture and hence ERCP could not be performed Recommendations: The findings of this examination were discussed with the patient as well as a family. We'll discuss with and make arrangements for transfer to [facility] for ERCP and CBD stone removal
--- NOTE | 2021-07-07 18:48 | P.PN ---
Subjective Progress Note Date: 07/07/21 Krista Aguilar, is an 80-year-old female who presented to [facility] emergency room with a chief complaint of nausea vomiting abdominal bloating and occasional abdominal pain She was evaluated in the emergency room vital examination on presentation revealed a temperature of 98.7 pulse 95 respiration 20 blood pressure 145/68 pulse ox 96% on room air Laboratory data reveals a white blood count of 10.8 hemoglobin 12.8 platelet count 259 INR 1.1 AST 372 a LT 323 alkaline phosphatase 163 total bilirubin 3.9 Testing in the emergency room revealed liver ultrasound done in the emergency room revealed gallbladder is absent, there is dilated common bile duct, otherwise no significant abnormality Patient was admitted to medical floor for further evaluation and treatment, gastroenterology consultation was requested. Past medical history is significant for history of hypertension, history of hyper lipidemia, history of coronary artery disease, past medical history significant for cholecystectomy and hysterectomy On review of systems Patient is alert and oriented x 3 in no distress, she d enies any complaints at this time there is no fever or chills no headache or dizziness no chest pain no shortness of breath no palpitation no cough no nausea or vomiting no abdominal pain no diarrhea no blood in the stools no burning with urination no frequency or urgency and no hematuria, there is no weakness or numbness in any of the extremities no change in vision speech or gait. On 07/07/2021 Patient was seen and examined on the medical floor, he is alert and oriented x 3 in no distress, he denies any complaints there is no fever or chills no headache or dizziness no chest pain no shortness of breath no palpitation no cough no nausea or vomiting no abdominal pain no diarrhea no blood in the stools no burning with urination no frequency or urgency and no hematuria, there is no weakness or numbness in any of the extremities no change in vision speech or gait. At this time patient is scheduled for ERCP today with Dr. Liza Yin, will follow closely. Objective - Vital Signs Vital signs: Vital Signs Temp 98.3 F 07/07/21 11:44 Pulse 73 07/07/21 11:44 Resp 16 07/07/21 11:44 BP 114/78 07/07/21 11:44 Pulse Ox 98 07/07/21 11:44 Intake & Output 07/06/21 07/07/21 07/07/21 18:59 06:59 18:59 Intake Total 1200 Balance 1200 Weight 56.8 kg Intake: Intake, IV Titration 1200 Amount Sodium Chloride 0.9% 1, 1200 000 ml @ 100 mls/hr IV . Q10H [facility] Rx#:[id number] Other: Voiding Method Toilet Toilet Toilet # Voids 2 - Exam In general patient is alert and oriented x 3 in no distress HEENT head normocephalic and atraumatic Neck is supple no JVD no goiter no lymphadenopathy no carotid bruit Chest examination is clear to auscultation no crackles no wheezing Cardiac exam reveals regular heart sounds S1 and S2 no gallops no murmurs Abdomen is soft nontender no organomegaly with normal bowel sounds Extremity exam reveals no edema no cyanosis or clubbing Neurological examination reveals no gross focal deficits - Labs CBC & Chem 7: 07/07/21 04:52 07/07/21 04:52 Labs: Abnormal Lab Results - Last 24 Hours (Table) 07/06/21 07/06/21 07/07/21 Range/Units 12:45 12:45 04:52 RBC 3.68 L 3.52 L (3.80-5.40) m/uL MCV 100.3 H (80.0-100.0) fL Calcium (8.7-10.3) mg/dL Total Bilirubin 2.1 H (0.2-1.3) mg/dL AST 175 H (14-36) U/L ALT 242 H (4-34) U/L Alkaline Phosphatase 161 H (38-126) U/L Total Protein (6.2-8.2) g/dL Albumin (3.80-4.90) g/dL Albumin/Globulin Ratio (1.60-3.17) g/dL 07/07/21 Range/Units 04:52 RBC (3.80-5.40) m/uL MCV (80.0-100.0) fL Calcium 8.4 L (8.7-10.3) mg/dL Total Bilirubin (0.2-1.3) mg/dL AST 82 H (14-36) U/L ALT 165 H (4-34) U/L Alkaline Phosphatase 138 H (38-126) U/L Total Protein 6.0 L (6.2-8.2) g/dL Albumin 3.40 L (3.80-4.90) g/dL Albumin/Globulin Ratio 1.31 L (1.60-3.17) g/dL Assessment and Plan Plan: Nausea vomiting and abdominal pain Elevated liver enzymes, including AST ALT and alkaline phosphatase and elevated total bilirubin, possible partial obstruction of the common bile duct, with a stone versus tumor, MRCP was ordered, gastroenterology consultation was requested Underlying history of hypertension Underlying history of coronary artery disease stable no cardiac symptoms At this time patient is admitted to medical floor Laboratory data and abdomen ultrasound were reviewed Awaiting MRCP Awaiting gastroenterology consultation Will recheck labs in a.m. and follow closely
--- NOTE | 2021-07-07 18:50 | P.PN ---
Progress Note - Text Progress Note Date: 07/07/21 This is an addendum on the note for Krista Aguilar on 07/07/2021 Patient underwent ERCP with Dr. Liza Yin today, with attempt to remove the stone from the common bile duct. This failed due to stricture of the common bile duct. Patient need to be referred to [facility] for higher level care. credit risk manager informed. Transfer procedure were initiated
[2021-07-07] MEDS: METOPROLOL TARTRATE 25 MG TAB PO SCH (20:26)
[2021-07-08] MEDS: SODIUM CHLORIDE 0.9% 1,000 ML IV SCH (05:16)
[2021-07-08] MEDS: LISINOPRIL-HCTZ 20-25 MG 1 EACH TAB PO SCH (09:13)
[2021-07-08] MEDS: amLODIPine 10 MG TAB PO SCH (09:13)
[2021-07-08 10:14] LABS: Basophils # (A) 0.1 k/uL (0-0.2); Basophils % (A) 1 %; Eosinophils # (A) 0.2 k/uL (0-0.7); Eosinophils % (A) 5 %; HCT 36.8 % (34.0-46.0); HGB 12.2 gm/dL (11.4-16.0); Lymphocytes # (A) 1.4 k/uL (1.0-4.8); Lymphocytes % (A) 31 %; MCH 32.6 pg (25.0-35.0); MCV 98.8 fL (80.0-100.0); Mean Platelet Volume 7.8; Monocytes # (A) 0.3 k/uL (0-1.0); Monocytes % (A) 7 %; Neutrophils # (A) 2.4 k/uL (1.3-7.7); Neutrophils % (A) 54 %; Platelet Count 269 k/uL (150-450); RBC 3.73 m/uL (3.80-5.40); WBC 4.4 k/uL (3.8-10.6)
[2021-07-08 10:27] LABS: ALT 117 U/L (4-34); AST 45 U/L (14-36); African American GFR (CKD) 70 (>60 ml/min/1.73 sqM); Albumin 3.7 g/dL (3.5-5.0); Albumin/Globulin Ratio 1.2; Alkaline Phosphatase 133 U/L (38-126); Anion Gap 8 mmol/L; Blood Urea Nitrogen 13 mg/dL (7-17); Calcium 9.1 mg/dL (8.4-10.2); Carbon Dioxide 24 mmol/L (22-30); Chloride 106 mmol/L (98-107); Glucose 113 mg/dL (74-99); Non-African American GFR(CKD) 61 (>60 ml/min/1.73 sqM); Potassium 4.1 mmol/L (3.5-5.1); Sodium 138 mmol/L (137-145); Total Bilirubin 1.1 mg/dL (0.2-1.3); Total Protein 6.7 g/dL (6.3-8.2)
--- NOTE | 2021-07-08 11:18 | P.PN ---
Subjective Progress Note Date: 07/08/21 Krista Aguilar, is an 80-year-old female who presented to [facility] emergency room with a chief complaint of nausea vomiting abdominal bloating and occasional abdominal pain She was evaluated in the emergency room vital examination on presentation revealed a temperature of 98.7 pulse 95 respiration 20 blood pressure 145/68 pulse ox 96% on room air Laboratory data reveals a white blood count of 10.8 hemoglobin 12.8 platelet count 259 INR 1.1 AST 372 a LT 323 alkaline phosphatase 163 total bilirubin 3.9 Testing in the emergency room revealed liver ultrasound done in the emergency room revealed gallbladder is absent, there is dilated common bile duct, otherwise no significant abnormality Patient was admitted to medical floor for further evaluation and treatment, gastroenterology consultation was requested. Past medical history is significant for history of hypertension, history of hyper lipidemia, history of coronary artery disease, past medical history significant for cholecystectomy and hysterectomy On review of systems Patient is alert and oriented x 3 in no distress, she d enies any complaints at this time there is no fever or chills no headache or dizziness no chest pain no shortness of breath no palpitation no cough no nausea or vomiting no abdominal pain no diarrhea no blood in the stools no burning with urination no frequency or urgency and no hematuria, there is no weakness or numbness in any of the extremities no change in vision speech or gait. On 07/07/2021 Patient was seen and examined on the medical floor, he is alert and oriented x 3 in no distress, he denies any complaints there is no fever or chills no headache or dizziness no chest pain no shortness of breath no palpitation no cough no nausea or vomiting no abdominal pain no diarrhea no blood in the stools no burning with urination no frequency or urgency and no hematuria, there is no weakness or numbness in any of the extremities no change in vision speech or gait. At this time patient is scheduled for ERCP today with Dr. Liza Yin, will follow closely. On 07/08/2021 patient is alert and oriented 3. Patient underwent ERCP yesterday in which he was unable to be advanced through the stricture and ERCP could not be performed per GI recommendation patient to be transferred to [facility] for ERCP and CBD stone removal. Discussed case with case management transfer currently in progress to [facility]. At this time patient denies chest pain or shortness of breath. Patient denies nausea vomiting or diarrhea. Patient denies any urinary burning or frequency. AST 45, ALT 117 alkaline phosphatase 113 Objective - Vital Signs Vital signs: Vital Signs Temp 97.7 F 07/08/21 05:00 Pulse 62 07/08/21 05:00 Resp 18 07/08/21 05:00 BP 138/73 07/08/21 05:00 Pulse Ox 96 07/08/21 05:00 Intake & Output 07/07/21 07/08/21 07/08/21 18:59 06:59 18:59 Intake Total 1100 1700 Balance 1100 1700 Weight 59.1 kg Intake: IV 200 Intake, IV Titration 900 1200 Amount Levofloxacin 500Mg-D5w 100 Pmx 500 mg In Dextrose/ Water 1 100ml.bag @ 100 mls/hr IVPB Q24H [facility] Rx#: [id number] Sodium Chloride 0.9% 1, 800 1200 000 ml @ 100 mls/hr IV . Q10H [facility] Rx#:[id number] Oral 500 Other: Voiding Method Toilet Toilet # Voids 3 - Exam In general patient is alert and oriented x 3 in no distress HEENT head normocephalic and atraumatic Neck is supple no JVD no goiter no lymphadenopathy no carotid bruit Chest examination is clear to auscultation no crackles no wheezing Cardiac exam reveals regular heart sounds S1 and S2 no gallops no murmurs Abdomen is soft nontender no organomegaly with normal bowel sounds Extremity exam reveals no edema no cyanosis or clubbing Neurological examination reveals no gross focal deficits - Labs CBC & Chem 7: 07/08/21 09:29 07/08/21 09:29 Labs: Abnormal Lab Results - Last 24 Hours (Table) 07/08/21 07/08/21 Range/Units 09:29 09:29 RBC 3.73 L (3.80-5.40) m/uL Glucose 113 H (74-99) mg/dL AST 45 H (14-36) U/L ALT 117 H (4-34) U/L Alkaline Phosphatase 133 H (38-126) U/L Assessment and Plan Plan: Nausea vomiting and abdominal pain Elevated liver enzymes, including AST ALT and alkaline phosphatase and elevated total bilirubin, possible partial obstruction of the common bile duct, with a stone versus tumor, MRCP was ordered, gastroenterology consultation was requested Underlying history of hypertension Underlying history of coronary artery disease stable no cardiac symptoms At this time patient is admitted to medical floor Laboratory data and abdomen ultrasound were reviewed Status post unsuccessful ERCP due to stricture recommendation per GI transfer to tertiary facility Awaiting gastroenterology consultation Will recheck labs in a.m. and follow closely
[2021-07-08 11:55] VITALS: BP 145/73; PULSE 59; RESP 16; TEMP 98.4
--- NOTE | 2021-07-08 12:06 | P.PN ---
Subjective Progress Note Date: 07/08/21 Principal diagnosis: Choledocholithiasis 80-year-old female who presented to the emergency department with complaints of right upper quadrant pain associated with nausea and vomiting prior to coming to the hospital. On admission she was noted to have elevation in her bilirubin, AST and ALT. She had an MRCP that showed a large CBD stone. Yesterday she underwent an ERCP that had to be aborted as patient had a tight proximal esophageal stricture and the colonoscope could not be advanced through the stricture hence the ERCP was aborted. Recommendations were to transfer the patient to a tertiary center such as [facility] for advanced endoscopist to perform ERCP with CBD stone removal. However there is a 5 to seven-day weight at [facility]. Case management is working with possible transfer to [facility]. In the meantime the patient states she is feeling well, she denies any abdominal pain, nausea, or vomiting. She continues to have improvement in her LFTs. Today total bilirubin 1.1, alkaline phosphatase 133, AST 45, ALT 117. Objective - Vital Signs Vital signs: Vital Signs Temp 97.7 F 07/08/21 05:00 Pulse 62 07/08/21 05:00 Resp 18 07/08/21 05:00 BP 138/73 07/08/21 05:00 Pulse Ox 96 07/08/21 05:00 Intake & Output 07/07/21 07/08/21 07/08/21 18:59 06:59 18:59 Intake Total 1100 1700 Balance 1100 1700 Weight 59.1 kg Intake: IV 200 Intake, IV Titration 900 1200 Amount Levofloxacin 500Mg-D5w 100 Pmx 500 mg In Dextrose/ Water 1 100ml.bag @ 100 mls/hr IVPB Q24H [facility] Rx#: [id number] Sodium Chloride 0.9% 1, 800 1200 000 ml @ 100 mls/hr IV . Q10H [facility] Rx#:[id number] Oral 500 Other: Voiding Method Toilet Toilet # Voids 3 - Exam General appearance: The patient is alert, oriented, appears in no acute distress. HET: Head is normocephalic and atraumatic. Conjunctiva pink. Sclera anicteric. Neck: Supple without lymphadenopathy. Abdomen: Soft, nontender, nondistended with bowel sounds. No guarding or rigidity. Extremities: Normal skin color and turgor. No pedal edema Skin: No rashes, no jaundice Neurological: No focal deficits. Alert and oriented 3. - Labs CBC & Chem 7: 07/08/21 09:29 07/08/21 09:29 Labs: Abnormal Lab Results - Last 24 Hours (Table) 07/07/21 Range/Units 04:52 Calcium 8.4 L (8.7-10.3) mg/dL AST 82 H (13-35) U/L ALT 165 H (8-44) U/L Alkaline Phosphatase 138 H (41-126) U/L Total Protein 6.0 L (6.2-8.2) g/dL Albumin 3.40 L (3.80-4.90) g/dL Albumin/Globulin Ratio 1.31 L (1.60-3.17) g/dL Assessment and Plan (1) Choledocholithiasis Narrative/Plan: 80-year-old female who presented to the emergency department with complaints of right upper quadrant and epigastric pain associated with nausea and vomiting over the last few days duration with worse intensity. Patient states she's been having similar symptoms over the past 1 year periodically. She currently denies any abdominal pain, nausea, or vomiting. She underwent an ultrasound of the liver showing dilated CBD at 1.3 cm. She subsequently underwent an MRCP showing evidence of choledochal lithiasis with a large ovoid 2.2 x 1.1 cm stone in the lower bile duct, secondary biliary ductal dilation up to 1.8 cm with mild diffuse dilation of the main pancreatic duct up to 4.5 mm. Patient also exhibited elevated LFTs. Her acute hepatitis panel was negative. She has previous cholecystectomy in 2001 for unknown reasons, Likely cholelithiasis. We'll plan to proceed with ERCP. ERCP was attempted however had to be aborted due to proximal esophageal stricture and duodenal scope was unable to be advanced. Plan was for transfer to tertiary center such as [facility], however [facility] has a 5-7 days wait for inpatient admission. Currently working on possible transfer to [facility] for ERCP and CBD stone removal with advanced endoscopist. Current Visit: Yes Status: Acute Code(s): K80.50 - CALCULUS OF BILE DUCT W/O CHOLANGITIS OR CHOLECYST W/O OBST SNOMED Code(s): 121103424 (2) Abdominal pain Current Visit: Yes Status: Acute Code(s): R10.9 - UNSPECIFIED ABDOMINAL PAIN SNOMED Code(s): 37258726 Plan: 1. Full liquid diet 2. ERCP attempted, unable to complete due to tight proximal esophageal stricture. 3. Transfer to [facility] for advanced endoscopist, ERCP and CBD stone removal recommended 4. Repeat CMP daily 5. vault manager on consult, trying to arrange transfer to tertiary hospital. Patient was accepted as transfer to [facility] plan is for transfer this afternoon at 5:30. Thank you for this consultation, we will continue to follow. Dr. Edith Yin I agree with the dictator's note, documented as a scribe by Griselda Graf.
--- NOTE | 2021-07-08 22:16 | P.PN ---
Subjective Progress Note Date: 07/08/21 CHIEF COMPLAINT: Abdominal pain HISTORY OF PRESENT ILLNESS: The patient is an 80-year-old female who presented with abdominal pain including choledocholithiasis. She reports tolerating liquid diet. She had an ERCP done yesterday however unsuccessful. Patient reports she is pending transfer to [facility] for additional procedures. Otherwise no moderate abdominal pain. REVIEW OF ORGAN SYSTEMS: No fevers or chills. No nausea or vomiting. No chest pain. PHYSICAL EXAM: VITALS: Reviewed CONSTITUTIONAL: Well developed and in no acute distress. EYES: Conjuctivae without sclera icterus. Extraocular movements grossly intact. HEAD, EARS, NOSE, THROAT: Moist buccal mucosa. Head is atraumatic, normocephalic. Hears conversational speech. No nasal drainage. RESPIRATORY: Non-labored respirations and equal bilateral excursions. No gross wheezes. CARDIOVASCULAR: Palpable 2+ radial pulses. ABDOMEN: Nontender. MUSCULOSKELETAL: No clubbing, cyanosis or edema. SKIN: Warm and well perfused with good skin turgor. NEUROLOGIC: Cranial nerves II through XII grossly intact. Sensation upper and extremities intact. No focal or lateralizing signs. PSYCH: Appropriate affect. Alert and oriented to person, place and time. Displays appropriate insight. CLINCAL LABS: Reviewed. WBC normal at 5.8. LFTs improved. Total bilirubin within normal limits 1.1 down from 3.5. REPORTS: Attempted ERCP demonstrates esophageal stenosis with failed attempts. ASSESSMENT: 1. Choledocholithiasis with abdominal pain 2. Elevated LFTs 3. Attempted ERCPs PLAN: 1. Patient is pending transfer to [facility] for additional procedures. 2. Recommend follow-up per GI. Objective - Vital Signs Vital signs: Vital Signs Temp 98.4 F 07/08/21 11:54 Pulse 59 L 07/08/21 11:54 Resp 16 07/08/21 11:54 BP 145/73 07/08/21 11:54 Pulse Ox 94 L 07/08/21 11:54 Intake & Output 07/08/21 07/08/21 07/09/21 06:59 18:59 06:59 Intake Total 1700 Balance 1700 Weight 59.1 kg Intake: Intake, IV Titration 1200 Amount Sodium Chloride 0.9% 1, 1200 000 ml @ 100 mls/hr IV . Q10H [facility] Rx#:[id number] Oral 500 Other: Voiding Method Toilet # Voids 3 - Labs CBC & Chem 7: 07/08/21 09:29 07/08/21 09:29 Labs: Abnormal Lab Results - Last 24 Hours (Table) 07/08/21 07/08/21 Range/Units 09:29 09:29 RBC 3.73 L (3.80-5.40) m/uL Glucose 113 H (74-99) mg/dL AST 45 H (14-36) U/L ALT 117 H (4-34) U/L Alkaline Phosphatase 133 H (38-126) U/L Assessment and Plan (1) Abdominal pain Status: Acute Code(s): R10.9 - UNSPECIFIED ABDOMINAL PAIN SNOMED Code(s): 93709081 (2) Choledocholithiasis Status: Acute Code(s): K80.50 - CALCULUS OF BILE DUCT W/O CHOLANGITIS OR CHOLECYST W/O OBST SNOMED Code(s): 700710609 (3) Common bile duct dilatation Status: Acute Code(s): K83.8 - OTHER SPECIFIED DISEASES OF BILIARY TRACT SNOMED Code(s): 189110163 (4) Hyperbilirubinemia Status: Acute Code(s): E80.6 - OTHER DISORDERS OF BILIRUBIN METABOLISM SNOMED Code(s): 99087266 (5) Transaminitis Status: Acute Code(s): R74.01 - ELEVATION OF LEVELS OF LIVER TRANSAMINASE LEVELS SNOMED Code(s): 147334815
[2021-07-13] MEDS ORDERED: ERGOCALCIFEROL 1,250 MCG (50,000 IU) CAPSULE PO SCH (09:00)
== END 2021-07-08 18:33 | disposition short-term general hospital (02) | DRG 446 ==
LOC: EC 16:26 → 5NMEDONC 19:56
PROVIDERS: ADMIT Internal Medicine; ATTEND Internal Medicine
PROC: 0DJ08ZZ Inspection of Upper Intestinal Tract, Via Natural or Artificial Opening Endoscopic (ICD-10-PCS; principal; 2021-07-07 07:45)
DX: K80.30 Calculus of bile duct with cholangitis, unspecified, without obstruction (principal); E78.5 Hyperlipidemia, unspecified; E80.6 Other disorders of bilirubin metabolism; I10 Essential (primary) hypertension; K29.70 Gastritis, unspecified, without bleeding; I25.10 Atherosclerotic heart disease of native coronary artery without angina pectoris; K22.2 Esophageal obstruction; Z20.822 Contact with and (suspected) exposure to COVID-19; Z53.8 Procedure and treatment not carried out for other reasons; Z79.899 Other long term (current) drug therapy; Z87.891 Personal history of nicotine dependence; Z90.49 Acquired absence of other specified parts of digestive tract; Z90.710 Acquired absence of both cervix and uterus
CPT/HCPCS: 36415; 43235; 74018; 74181; 76705; 80053; 80074; 81001; 82248; 83690; 85025; 85027; 85610; 85730; 87635; 99285

== ENCOUNTER → 2024-01-17 | Outpatient (CLI) | payer MEDICARE, BC ==
[2024-01-17 12:10] LABS: African American GFR (CKD) 67 (>60 ml/min/1.73 sqM); Blood Urea Nitrogen 26 mg/dL (7-17); Non-African American GFR(CKD) 58 (>60 ml/min/1.73 sqM)
--- NOTE | 2024-01-17 13:34 | CT ---
EXAMINATION TYPE: CT angio neck DATE OF EXAM: 01/17/2024 HISTORY: occlusion and stenosis COMPARISON: None CT DLP: 707 mGycm. Automated Exposure Control for Dose Reduction was Utilized. TECHNIQUE: CTA scan of the neck is performed with IV Contrast, patient injected with 110 mL of Isovu e 370, axial images are obtained, coronal and sagittal reformatted images are reviewed. Three-D recon structed images are created on an independent workstation and reviewed. Source images are reviewed. FINDINGS: Carotid/Vascular Structures: There is a 3 vessel arch. There is a moderately long segment narrowing of the left internal carotid artery from its origin to t he mid to distal internal carotid artery. This has 52% narrowing. Correlate with the patient's sympto ms. The right vertebral artery appears normal without significant stenosis. Vertebral arteries are codominant. Internal carotid arteries and vertebral arteries are patent to the skull base. Other: Thyroid is heterogenous. This could be further evaluated with ultrasound. IMPRESSION: 1. 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 2. Significant stenosis of the right internal carotid artery is not evident. 3. Heterogenous thyroid. Consider thyroid ultrasound for additional workup NASCET criteria was used in interpretation of this exam?
== END | disposition home or self-care (01) ==
LOC: RADCTMAIN 11:29
PROVIDERS: ATTEND Surgery
DX: I65.23 Occlusion and stenosis of bilateral carotid arteries (principal)
CPT/HCPCS: 82565; 84520; 70498; 36415; Q9967